=== PATIENT | female | born 1975 | race Two or more races ===

== ENCOUNTER 2017-01-27 15:19 | Emergency (ER) | payer OTHER ==
[2017-01-27 15:24] VITALS: BP 151/83; PULSE 77; TEMP 98; BMI 23.6
[2017-01-27] MEDS ORDERED: KETOROLAC TROMETHAMINE 60 MG/2 ML VIAL IM ONE (15:59)
[2017-01-27] MEDS ORDERED: KETOROLAC TROMETHAMINE 60 MG/2 ML VIAL ONE (16:17)
--- NOTE | 2017-01-27 16:17 | PDOC ---
History of Present Illness - General Chief Complaint: Back Pain Stated Complaint: BACK PAIN Time Seen by Provider: 01/27/17 15:38 - History of Present Illness Initial Comments: 01/27/17 16:01 CHIEF COMPLAINT: HISTORY OF PRESENT ILLNESS: 41 yo F with hx of HTN (noncompliant with medications) presents to [facility] with sudden onset lower back pain. Patient reports she was lifting "6 of the 2 liter bottles" at home and felt her back get tight and now she has pain to her back radiating down to her left leg. She denies loss of sensation to her legs, loss of bowel or bladder dysfunction. PAST MEDICAL HISTORY: HTN, admits to only taking amlodipine "when I have high pressure" FAMILY HISTORY: Denies SOCIAL HISTORY: Denies tobacco, alcohol, illicit drug use. SURGICAL HISTORY: Denies ALLERGIES: No known drug allergies REVIEW OF SYSTEMS General/Constitutional: Denies fever or chills. Denies weakness, weight change. HEENT: Denies change in vision. Denies ear pain or discharge. Denies sore throat. Cardiovascular: Denies chest pain or shortness of breath. Respiratory: Denies cough, wheezing, or hemoptysis. Gastrointestinal: Denies nausea, vomiting, diarrhea or constipation. Denies rectal bleeding. Genitourinary: Denies dysuria, frequency, or change in urination. Musculoskeletal: Left lower back pain radiating to left leg. Skin and breasts: Denies rash or easy bruising. PHYSICAL EXAM General Appearance: Well-appearing, appropriately dressed. No apparent distress. HEENT: EOMI, PERRLA. Neck: Supple. Trachea midline. No tenderness, rigidity, carotid bruit, stridor , lymphadenopathy, or thyromegaly. Respiratory/Chest: Lungs CTAB. Cardiovascular: RRR. S1, S2. Vascular Pulses: Dorsalis-Pedis (R): 2+, Dorsalis-Pedis (L): 2+ Gastrointestinal/Abdominal: Normal bowel sounds. Abdomen soft, non-distended. No tenderness or rebound tenderness. No organomegaly, pulsatile mass, guarding , hernia, hepatomegaly, splenomegaly. Musculoskeletal/Extremities: Positive straight leg test to L leg. Normal inspection. FROM of all extremities, normal capillary refill. Pelvis Stable. No CVA tenderness. No tenderness to extremities, pedal edema, swelling, erythema or deformity. Integumentary: Appropriate color, dry, warm. No cyanosis, erythema, jaundice or rash Neurologic: speaker mounter II-XII intact. Fully oriented, alert. Appropriate mood/affect. Motor strength 5/5. No appreciable EOM palsy, facial droop or sensory deficit. Past History - Past Medical History Allergies/Adverse Reactions: Allergies Allergy/AdvReac Type Severity Reaction Status Date / Time No Known Allergies Allergy Verified 01/27/17 15:21 Home Medications: Ambulatory Orders Cyclobenzaprine HCl [Flexeril 10 mg] 10 mg PO HS PRN #5 tablet 01/27/17 Naproxen [Naprosyn -] 250 mg PO BID #14 tablet 01/27/17 Other medical history: none - Surgical History Appendectomy: Yes - Psycho/Social/Smoking Cessation Hx Anxiety: No Suicidal Ideation: No Smoking History: Never smoked Information on smoking cessation initiated: No Hx Alcohol Use: No Drug/Substance Use Hx: No Substance Use Type: None *Physical Exam - Vital Signs Last Vital Signs Temp Pulse Resp BP Pulse Ox 98.0 F 77 18 151/83 100 01/27/17 15:22 01/27/17 15:22 01/27/17 15:22 01/27/17 15:22 01/27/17 15:22 Medical Decision Making - Medical Decision Making 01/27/17 16:23 41 yo F with hx of HTN (noncompliant with medications) [facility] with sudden onset lower back pain. -Upreg -Toradol 60 mg IM Patient reassessed at this time; she states she is feeling better and is ambulatory in [facility]. Advised patient to take medication as prescribed and follow up with orthopedics in one week if symptoms persist. Advised patient of signs and symptoms for return to ED. Patient verbalized understanding and agrees to plan. 01/27/17 17:03 *DC/Admit/Observation/Transfer Diagnosis at time of Disposition: Sciatica Qualifiers: Laterality: left Qualified Code(s): M54.32 - Sciatica, left side - Discharge Dispostion Admit: No - Prescriptions Prescriptions: Cyclobenzaprine HCl [Flexeril 10 mg] 10 mg PO HS PRN #5 tablet PRN Reason: Pain Naproxen [Naprosyn -] 250 mg PO BID #14 tablet - Referrals Referrals: Juarez Almanza MD [Staff Physician] - - Patient Instructions Printed Discharge Instructions: DI for Back Pain With Sciatica Additional Instructions: Please take medications as prescribed and follow up with the orthopedic doctor within the next week for further evaluation of your back pain. If you experience any loss of sensation to your legs, inability to hold your urine or bowels, or you develop headache, fever, vomiting, diarrhea, or any new or worsening symptoms, please return to the ER. Please remember to take your high blood pressure medication every day as prescribed by your primary care doctor. Por favor tome los medicamentos segn lo prescrito y siga con el mdico ortop dico dentro de la prxima semana para thompson evaluacin ms detallada de blanco dolor de espalda. Si experimenta alguna prdida de sensibilidad en las piernas, incapacidad para retener la orina o defacacion, o desarrolla dolor de sergio, fiebre, vmitos, diarrea o cualquier nuevo o empeoramiento de los sntomas, por favor regrese a la timmy de emergencias. Por favor, recuerde vika blanco medicamento para la presin arterial jannet todos los de segn lo recetado por blanco mdico de atencin primaria. Print Language: BENGALI
== END 2017-01-27 16:51 | disposition home or self-care (01) ==
LOC: JERFT 15:19
PROC: 3E0233Z Introduction of Anti-inflammatory into Muscle, Percutaneous Approach (ICD-10-PCS; principal; 2017-01-27)
DX: M54.42 Lumbago with sciatica, left side (principal); I10 Essential (primary) hypertension; Z91.14 Patient's other noncompliance with medication regimen
CPT/HCPCS: 96372; 99281-25

== ENCOUNTER 2019-04-14 17:20 | Emergency (ER) | payer OTHER ==
--- NOTE | 2019-04-14 17:51 | PDOC ---
History of Present Illness - General Chief Complaint: Chest Pain Stated Complaint: CHEST PAIN Time Seen by Provider: 04/14/19 17:50 Past History - Past Medical History Allergies/Adverse Reactions: Allergies Allergy/AdvReac Type Severity Reaction Status Date / Time No Known Allergies Allergy Verified 01/27/17 15:21 Home Medications: Ambulatory Orders Enalapril Maleate 5 mg PO DAILY 04/14/19 - Surgical History Appendectomy: Yes - Suicide/Smoking/Psychosocial Hx Smoking History: Never smoked Hx Alcohol Use: No Drug/Substance Use Hx: No Substance Use Type: None ED Treatment Course - LABORATORY CBC & Chemistry Diagram: 04/14/19 18:55 04/14/19 18:55 Medical Decision Making - Medical Decision Making HPI: 44yo F with PMH of HTN presenting with high blood pressure (unknown value), shortness of breath, and chest pain after having a thirty minute urologic procedure at 4:30pm. Patient states she had a urologic procedure to "remove a grape". Patient was not intubated. As she was coming out of the sedation/ anesthesia she started feeling poorly, had left sided chest pain, and shortness of breath and so her urologist sent her to the ED for evaluation. No personal history of IN. Patient's mother had an IN in her 80s. Patient is reporting bilateral hand numbness and pain in her urethra. She has a orr catheter in place. The patient's family members state that she looks lethargic. It is unknown when patient is supposed to follow up with urology. No fevers or chills. Urologist: Dr. Mo Cunha ROS: Constitutional: no fever, no chills HEENT: no throat pain, no dysphagia Cardiovascular: +chest pain, no palpitations Respiratory: no cough, +shortness of breath Gastrointestinal: +abdominal pain, no nausea Genitourinary: no dysuria, no hematuria Musculoskeletal: no myalgia, no arthralgia Skin: no rash, no itching Neurologic: no headache, +weakness PE: General: Awake, alert, and fully oriented, appears fatigued Head: No signs of trauma Eyes: EOMI, sclera anicteric ENT: Moist mucus membranes Neck: Normal ROM, supple Lungs: Lungs clear, Normal breath sounds Cardio: Regular rhythm, S1 and S2 present Abdomen: Tender to palpation most focal to lower abdomen. Soft, nondistended. No CVA tenderness. Orr catheter in place. Extremities: Normal range of motion, Distal pulses present SKIN: Warm, Dry, normal turgor Neurologic: Cranial nerves II through XII grossly intact. Normal speech ED Course/MDM: DDX including but not limited to post-anesthesia reaction, ACS, PE, PNA Patient normotensive here VSS I took the call from EMS and was told patient was coming out of anesthesia ( given versed) when she had shortness of breath, chest pain and was sent to the ER for evaluation. I have a low suspicion for ACS and PE as patient with only HTN as cardiac risk factor. She PERCS out and so has a less than 2% chance of PE. EKG: rate 64, QTc 458, NSR 04/14/19 17:51 Student=doctor Mcfadden spoke with answering service, , for Dr. Mo Cunha. We are expecting a call back. 04/14/19 18:37 [facility] It is unknown what patient has already received for pain and she was not discharged with any pain medications. We will obtain plain films of the chest and abdomen to rule out free air as patient had urologic procedure 04/14/19 19:00 Patient signed out to Dr. Arzola Pending: -labs -Radiographs -pain reassessment -speak with Dr. Cunha regarding what happened and discharge planning 04/14/19 19:04 *DC/Admit/Observation/Transfer Diagnosis at time of Disposition: SOB (shortness of breath) Chest pain Qualifiers: Chest pain type: unspecified Qualified Code(s): R07.9 - Chest pain, unspecified - Discharge Dispostion Disposition: HOME Condition at time of disposition: Good - Referrals Referrals: Lito Cunha MD [Non Staff, Medical] - - Patient Instructions Printed Discharge Instructions: DI for Chest Pain Additional Instructions: You were seen for chest pain and shortness of breath after a procedure. Your labs and imaging do not show anything concerning. Please see Dr Cunha urologist to remove the packing tomorrow afternoon. Take ibuprofen 400mg every 6 hours if you continue to have pain. Come back to the ED if you start vomiting, have worsening pain, or fever. Print Language: FRISIAN - Post Discharge Activity
[2019-04-14 18:42] VITALS: TEMP 97.8; BMI 29.0
[2019-04-14] MEDS ORDERED: ACETAMINOPHEN 1000 MG/100 ML VIAL (NON FORMULARY) IVPB ONE (19:01)
[2019-04-14 19:15] LABS: BASO % 0.6 % (0-2.0); EOS % 0.9 % (0-4.5); HEMATOCRIT 39.4 % (32.4-45.2); HEMOGLOBIN 13.3 GM/dL (10.7-15.3); LYMPH % 27.6 % (8-40); MCH 30.3 pg (25.7-33.7); MCHC 33.8 g/dl (32.0-36.0); MEAN CELL VOLUME 89.8 fl (80-96); MEAN PLT VOLUME 8.2 fl (7.5-11.1); MONO % 5.3 % (3.8-10.2); NEUT % 65.6 % (42.8-82.8); PLATELET COUNT 301 K/MM3 (134-434); RBC 4.39 M/mm3 (3.60-5.2); RDW 13.3 % (11.6-15.6); WHITE BLOOD COUNT 9.6 K/mm3 (4.0-10.0)
--- NOTE | 2019-04-14 19:21 | PDOC ---
*Physical Exam - Vital Signs Last Vital Signs Temp Pulse Resp BP Pulse Ox 97.8 F 68 18 116/77 99 04/14/19 17:20 04/14/19 17:20 04/14/19 17:20 04/14/19 17:20 04/14/19 17:20 ED Treatment Course - LABORATORY CBC & Chemistry Diagram: 04/14/19 18:55 04/14/19 18:55 Medical Decision Making - Medical Decision Making 04/14/19 19:16 CBC CMP trop coags HCG XR chest, AB rule out free air tylenol for pain CBC CMP normal, neg trop, HCG Received sign out from Dr. Cazares. Julia Simth is a 44yo F with PMH of HTN presenting with HTN (unknown value), shortness of breath, and chest pain after vaginoplasty and infected granulated suture removal with packing at 4:30pm. SOB and chest pain likely d/t post-anesthesia reaction. Unlikely PE, pt PERC out. Unlikely ACS w EKG showing normal sinus rhythm, neg trop. Not . Given tylenol for pain. Chest and AB XR did not show any acute pathology. Called Dr. Mo Cunha urologist to confirm urology procedure, amenable to sending pt home w clinic f/u tmrw afternoon for packing removal. Pt d/c home with instructions for clinic f/u tmrw afternoon for packing removal. *DC/Admit/Observation/Transfer Diagnosis at time of Disposition: SOB (shortness of breath) Chest pain Qualifiers: Chest pain type: unspecified Qualified Code(s): R07.9 - Chest pain, unspecified - Discharge Dispostion Disposition: HOME Condition at time of disposition: Good Decision to Admit order: No - Referrals Referrals: Lito Cunha MD [Non Staff, Medical] - - Patient Instructions Printed Discharge Instructions: DI for Chest Pain Additional Instructions: You were seen for chest pain and shortness of breath after a procedure. Your labs and imaging do not show anything concerning. Please see Dr Cunha urologist to remove the packing tomorrow afternoon. Take ibuprofen 400mg every 6 hours if you continue to have pain. Come back to the ED if you start vomiting, have worsening pain, or fever. Print Language: PERUVIAN - Post Discharge Activity
[2019-04-14] MEDS ORDERED: ACETAMINOPHEN INJECTION 100 ML IVPB ONE (19:23)
[2019-04-14 19:34] LABS: INR 1.12 (0.83-1.09); PROTHROMBIN TIME (PATIENT) 13.2 SEC (9.7-13.0)
[2019-04-14 19:35] VITALS: BP 142/98; PULSE 73
--- NOTE | 2019-04-14 19:41 | PDOC ---
Attending Attestation - Resident Resident Name: Peace Cazares - ED Attending Attestation I have performed the following: I have examined & evaluated the patient, The case was reviewed & discussed with the resident, I agree w/resident's findings & plan, Exceptions are as noted - HPI HPI: 04/14/19 19:36 44yo female biba from outpt surgery center after having a urologic procedure to remove a suture from a prior bladder lift. Pt developed cp/sob after the procedure and her BP was elevated. Pt received versed per the medics. Pt was not intubated per the family. Pt currently denies cp/sob. BP not elevated. Pt denies abd pain other than lower pelvic cramping since the procedure. Hx of a prior episode of elevated bp and cp with a prior procedure in the past. - Physicial Exam PE: 04/14/19 19:38 Gen: aaox3, nad heart: +s1s2 reg lungs: cta b/l abd: soft, nt/nd, mild suprapubic ttp, no rebound or guarding, orr in place with clear yellow urine in the bag ext: no c/c/e, no calf ttp - Medical Decision Making 04/14/19 19:39 a/p: 44yo female with cp, sob and elevated bp from the surgical center -call placed to Dr. He to obtain details of surgery -suspect abnl reaction to anesthesia causing symptoms -will send labs, ekg, cxr with upright chest to eval for free air -will monitor on tele while in the ED -bp stable and no symptoms at this time -states she feels better -destiny monitor and reassess 04/14/19 21:07 pt feeling much better resident discussed the case with Dr. he who states vaginoplasty and granulated suture removal with packing ok to dc if imagng neg has appt with him tomorrow for packing removal 04/14/19 21:08 labs reviewed cxr clear 04/14/19 21:19 abd xray neg no free air on cxr Heart Score/ECG Review - ECG Intrepretation Comment:: 04/14/19 19:41 sinus at 64, nl axis, nl interval, no acute st/t wave findings
[2019-04-14 19:49] LABS: ALBUMIN 3.8 g/dl (3.4-5.0); ALK PHOS 55 U/L (45-117); ANION GAP 7 MMOL/L (8-16); BILIRUBIN,TOTAL 0.4 mg/dL (0.2-1); BLOOD UREA NITROGEN 8.8 mg/dL (7-18); CALCIUM 8.9 mg/dL (8.5-10.1); CHLORIDE 106 mmol/L (98-107); CO2 28 mmol/L (21-32); CREATININE 0.6 mg/dL (0.55-1.3); GLUCOSE,RANDOM 87 mg/dL (74-106); POTASSIUM 3.8 mmol/L (3.5-5.1); SGOT/AST 19 U/L (15-37); SGPT/ALT 25 U/L (13-61); SODIUM 141 mmol/L (136-145); TOT PROT 7.8 g/dl (6.4-8.2)
--- NOTE | 2019-04-15 14:06 | EKG ---
Test Reason : Blood Pressure : / mmHG Vent. Rate : 064 BPM Atrial Rate : 064 BPM P-R Int : 166 ms QRS Dur : 080 ms QT Int : 444 ms P-R-T Axes : 041 016 033 degrees QTc Int : 458 ms NORMAL SINUS RHYTHM NORMAL ECG NO PREVIOUS ECGS AVAILABLE Confirmed by LEON SMILEY MD ([id number]) on 04/15/2019 2:06:15 PM Referred By: Confirmed By:LEON SMILEY MD
== END 2019-04-14 21:44 | disposition home or self-care (01) ==
LOC: JER 17:20
PROC: 3E033NZ Introduction of Analgesics, Hypnotics, Sedatives into Peripheral Vein, Percutaneous Approach (ICD-10-PCS; principal; 2019-04-14)
DX: R07.9 Chest pain, unspecified (principal); I10 Essential (primary) hypertension
CPT/HCPCS: 36415; 71046-TC-FY; 74019-TC-FY; 80053; 84484; 84703; 85025; 85610; 93005; 93010; 99283-25; J0131